=== PATIENT | female | born 1980 | race African-American/Black ===

== ENCOUNTER 2017-05-23 20:03 | Emergency (ER) | payer MEDICAID, OTHER ==
[2017-05-23] MEDS ORDERED: LIDOCAINE 1% INJ-PF (10 MG/ML) 30 ML SDV INJ ONE (22:17)
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
[2017-05-23 23:57] VITALS: BP 121/81
== END 2017-05-24 00:30 | disposition home or self-care (01) ==
LOC: ER 20:03
PROC: 0CQ1XZZ Repair Lower Lip, External Approach (ICD-10-PCS; principal; 2017-05-23)
DX: S01.511A Laceration without foreign body of lip, initial encounter (principal); V89.2XXA Person injured in unspecified motor-vehicle accident, traffic, initial encounter
CPT/HCPCS: 99282; 12053; J3490